=== PATIENT | male | born 1990 | race Caucasian/White ===

== ENCOUNTER 2018-12-22 22:39 | Emergency (ER) | payer SELFPAY, OTHER ==
[2018-12-23] MEDS: DIPHTH/TET/ACEL PERTUSS (ADULT) 0.5 ML VIAL IM*
== END 2018-12-23 00:52 | disposition home or self-care (01) ==
LOC: FTE 12-23 00:52
DX: S01.112A Laceration without foreign body of left eyelid and periocular area, initial encounter (principal); X99.8XXA Assault by other sharp object, initial encounter; Z23 Encounter for immunization
CPT/HCPCS: 12011; 90471; 90715; 99283-25